=== PATIENT | female | born 1955 | race Caucasian/White ===

== ENCOUNTER → 2016-11-24 | Outpatient (CLI) | payer MEDICARE, MEDICAID ==
[~2016-11-24] MED LIST: ABILIFY2 MG PO; ALDACTONE50 MG PO; COMBIVENT RESPIM4 GM INH; COREG3.125 MG PO; COZAAR25 MG PO; EPIPEN0.3 MG/0.3 SUBCUT; FERROUS SULFAT325 M1 PO; FIORICET1 TAB PO; FLONASE16 GM NASBOTH; INVOKANA300 MG PO; LASIX20 MG PO; LEVAQUIN500 MG PO; MODURETIC PO; MOTRIN800 MG PO; NADOLOL40 MG PO; NEURONTIN100 MG PO; NORCO 325-5 MG1 TAB PO; NOVOLOG MI100 UNIT/2 SUBCUT; PRILOSEC20 MG PO; PRINIVIL2.5 MG PO; PRISTIQ ER100 MG PO; REQUIP1 MG PO; ROBITUSSIN100 MG/5 M PO; SYNTHROID150 MCG PO; VENTOLIN HFA8 GM INH; VITAMIN D32000 UNIT PO; ZOFRAN4 MG PO; ZYLOPRIM100 MG PO; ZYRTEC10 MG PO
== END | disposition short-term general hospital (02) ==
LOC: CLORTH 09-29 12:26
DX: T84.84XD Pain due to internal orthopedic prosthetic devices, implants and grafts, subsequent encounter (principal); M21.922 Unspecified acquired deformity of left upper arm; Z96.622 Presence of left artificial elbow joint